=== PATIENT | female | born 1990 | race Caucasian/White ===

== ENCOUNTER 2022-11-11 09:17 | Outpatient (CLI) | payer OTHER, SELFPAY ==
--- NOTE | 2022-11-11 09:15 | CRLHL7_ITS ---
For Patients: As a result of the Century Cures Act, medical imaging exams and procedure reports are released immediately into your electronic medical record. You may view this report before your referring provider. If you have questions, please contact your health care provider. INDICATION: First trimester scan, establish dates. COMPARISON: None. TECHNIQUE: Real-time pizano-scale imaging of the pelvis was performed. FINDINGS: Intrauterine gestational sac is present with diffuse low level internal echoes with a mean sac diameter of 3.3 cm, 8 weeks 3 days. Left fundal subchorionic hemorrhage measuring 2.1 x 0.8 x 0.7 cm. pole is present measuring 2.5 millimeters, 5 weeks 6 days. No heart tones. No ectopic . Ovaries normal. Corpus luteal cyst right ovary. IMPRESSION: Nonviable gestation. Dictated by Chris Dennis MD @ 11/11/2022 11:19:48 AM (Electronically Signed)
== END 2022-11-11 09:18 | disposition home or self-care (01) ==
LOC: US 09:18
PROVIDERS: PCP Family Medicine; Visit Provider Physician Assistant
DX: Z34.91 Encounter for supervision of normal pregnancy, unspecified, first trimester (principal); O20.9 Hemorrhage in early pregnancy, unspecified
CPT/HCPCS: 76817; 84702; 86850; 86900; 86901

== ENCOUNTER 2022-11-25 07:14 | Outpatient (CLI) | payer OTHER, SELFPAY ==
--- NOTE | 2022-11-25 08:15 | CRLHL7_ITS ---
For Patients: As a result of the Century Cures Act, medical imaging exams and procedure reports are released immediately into your electronic medical record. You may view this report before your referring provider. If you have questions, please contact your health care provider. INDICATION: Follow up viability COMPARISON: 11/11/2022 TECHNIQUE: Real-time pizano-scale imaging of the pelvis was performed. FINDINGS: Intrauterine gestational sac is present, 3.2 cm, 8 weeks 2 days. Layering echoes noted compatible with blood products. No pole. Subchorionic hemorrhage measuring 4.7 x 0.6 x 1.5 cm. Ovaries are normal. No ectopic. IMPRESSION: Nonviable gestation. pole no longer present. Residual gestational sac in the endometrial canal containing blood products. Dictated by Chrsi Dennis MD @ 11/25/2022 9:37:49 AM (Electronically Signed)
== END 2022-11-25 07:15 | disposition home or self-care (01) ==
PROVIDERS: Visit Provider Physician Assistant
DX: Z34.91 Encounter for supervision of normal pregnancy, unspecified, first trimester (principal); O03.9 Complete or unspecified spontaneous abortion without complication
CPT/HCPCS: 76817

== ENCOUNTER 2023-03-11 10:50 | Outpatient (CLI) | payer OTHER, SELFPAY | END 2023-03-11 10:51 | disposition home or self-care (01) | LOC: NFLDREF 10:51 | PROVIDERS: Visit Provider Physician Assistant | DX: N93.8 Other specified abnormal uterine and vaginal bleeding (principal) | CPT/HCPCS: 84443 ==

== ENCOUNTER 2023-03-17 07:07 | Outpatient (CLI) | payer OTHER, SELFPAY ==
--- NOTE | 2023-03-17 07:15 | CRLHL7_ITS ---
For Patients: As a result of the Century Cures Act, medical imaging exams and procedure reports are released immediately into your electronic medical record. You may view this report before your referring provider. If you have questions, please contact your health care provider. INDICATION: IRREGULAR BLEEDING COMPARISON: 11/25/2022 TECHNIQUE: 2D pizano scale and color Doppler images were acquired of the pelvis using a transabdominal and transvaginal approach. FINDINGS: Sonographic images demonstrate a normal size and smooth outer contour of the uterus. Uterus measures 9.3 cm in length by 4.7 cm in AP diameter by 6.8 cm in transverse dimension. The myometrium has a normal uniform echotexture. The endometrial lining appears mildly heterogeneous and measures 8 mm in composite thickness. The right ovary measures 4.2 x 2.8 x 3.0 cm in size and the left ovary measures 4.5 x 2.1 x 2.3 cm. The ovaries demonstrate normal arterial and venous blood flow on color Doppler analysis. There are no suspicious fluid collections within the cul-de-sac. IMPRESSION: Mildly heterogeneous endometrium measuring 8 millimeters. No uterine fibroids. Dictated by Chris Dennis MD @ 03/17/2023 8:44:11 AM (Electronically Signed)
== END 2023-03-17 07:08 | disposition home or self-care (01) ==
PROVIDERS: Visit Provider Physician Assistant
DX: N93.8 Other specified abnormal uterine and vaginal bleeding (principal); R93.89 Abnormal findings on diagnostic imaging of other specified body structures
CPT/HCPCS: 76830; 76856

== ENCOUNTER 2023-09-30 07:47 | Outpatient (CLI) | payer OTHER, SELFPAY | END 2023-09-30 07:48 | disposition home or self-care (01) | LOC: NFLDREF 10-01 07:06 | PROVIDERS: PCP Family Medicine; Referring Provider Family Medicine; Visit Provider Family Medicine | DX: Z13.1 Encounter for screening for diabetes mellitus (principal); Z13.6 Encounter for screening for cardiovascular disorders | CPT/HCPCS: 80061; 82947 ==

== ENCOUNTER 2023-12-18 07:24 | Outpatient (CLI) | payer OTHER, SELFPAY ==
--- OUTSIDE RECORDS SUMMARY | 2023-12-23 07:06 | XMS_ITS | Referral Summary ---
Author Organization [facility] Address [address] [place] [address] Care Team Providers Care Imaging Center Manager Name Role Phone Unavailable Primary Care Provider Unavailabl e Source Comments Patient records contain information from all sites at [facility]. For routine questions regarding patient records, call [phone] during business hours, M-F 8:00 AM - 5:00 PM Central Time. Record requests for emergency care only can be directed to [phone] at any time.[facility] Immunizations Name Administration Dates Next Due SARS-COV-2 (COVID-19) - MODE RNA (12 YEARS AND OLDER) [id number] 04/16/2023 influenza vaccine quad (FLUZ ONE/FLUARIX) (6 months and older)(PF) 04/16/2023 Social History Tobacco Use Types Packs/Day Years Used Date Smoking Tobacco: Never Assessed Nutrition Answer Date Recorded Nutrition: EVOO Fat Source Unknown 04/02 Nutrition: Servings of Fruits/Vegetables per Day Not on file 04/02/2023 Dental Answer Date Recorded Dental: Regular Dentist Unknown 04/02/20 23 Sex and Gender Information Value Date Recorded Sex Assigned at Not on file Gender Identity Not on file Sexual Orientation Not on file Plan of Treatment Not on file
--- OUTSIDE RECORDS SUMMARY | 2023-12-23 07:06 | XMS_ITS ---
Author Organization [facility] Address [address] [place] [address] Care Team Providers Care Help Desk Technician Name Role Phone Unavailable Unavailable Unavailable Surgery Details Not on file Complications Check Surgery Details section. Procedure Estimated Blood Loss Check Surgery Details section. Procedure Findings Check Surgery Details section. Procedure Specimens Taken Check Surgery Details section.
--- OUTSIDE RECORDS SUMMARY | 2023-12-23 07:06 | XMS_ITS | Clinical Summary ---
Author Organization [facility] Address [place], [place] [address] Care Team Providers Care Fiberglass Auto Body Repairer Name Role Phone Pcp, No Primary Care Provider Unavailabl e Allergies Active Allergy Reactions Criticality Noted Date Comments Tree Nut Tongue Swelling 10/01/2011 Medications Medication Sig Dispensed Refills Start Date End Date Status oxyCODONE-acetaminop hen, 5-325 mg, (PERCOCET) per tablet Take 1-2 tablets by mouth every 4 hours if needed for Pain. Max acetaminophen dose: 4000mg in 24 hrs. 30 tablet 0 10/02/2011 Active ondansetron (ZOFRAN ODT) [address] 1 tablet on the tongue every 8 hours if needed for Nausea/Vomiting. 8 tablet 0 10/02/2011 Active levonorgestrel-ethin yl estradiol (QUASENSE) 0.15-30 mg-mcg tabletIndications:Dy smenorrhea Take 1 tablet by mouth once daily. 1 Package 3 10/01/2012 Active scopolamine 1.5mg (TRANSDERM SCOP) 1.5 mg patch Apply 1 Patch on dry, clean, hairless skin every 72 hours. 12 Patch 0 11/02/2012 Active Active Problems No known active problems Immunizations Name Administration Dates Next Due DTP 08/17/2002, 6,09/21/1991,1991,02/10/1991,1990 Hepatitis B (Peds) 12/27/1999,07/25/1999, 000 Hib Conjugate, Unspecified 12/01/1991,02/10/1991 ,1990 Influenza A (H1N1), Inactiva romana (Age >=3 Years) 04/28/2009 Influenza, IIV3 (Age >=3 years) 04/28/2009,03/18,02/25/2006 MMR 07/17/2001,11/29/1991 MMR, Unspecified 02/20/2001 Meningococcal, Unspecified 02/19/2006 Oral Polio Vaccine 01/09/1996, 3,02/10/1991,1990 Rabies Vaccine 11/23/2003 Td, Preservative Free (age > = 7 Years) 06/14/2004 Tdap 12/20/2010 Family History Medical History Relation Name Comments Good Health Father Cancer-breast Maternal Aunt in her 50s Good Health Mother Cancer-breast Paternal Aunt in her 50s Good Health Sister Anesthesia Problem No Family History Blood Disease No Family History Unknown No Family History kidney or urinary tract problems Relation Name Status Comments Father Maternal Aunt Mother Paternal Aunt Sister Social History Tobacco Use Types Packs/Day Years Used Date Smoking Tobacco: Never Smokeless Tobacco: Never Alcohol Use Standard Drinks/Week Comments Yes 0 (1 standard drink = 0.6 oz pur e alcohol) occ Sex and Gender Information Value Date Recorded Sex Assigned at Not on file Gender Identity Not on file Sexual Orientation Not on file Obstetrics History Last Filed Vital Signs Vital Sign Reading Time Taken Comments Blood Pressure 102/59 10/02/2011 10:53 AM CDT Pulse 68 10/02/2011 10:53 AM CDT Temperature 36.1 ??C (96.9 ??F) 10/02/2011 9:26 AM CD T Respiratory Rate 14 10/02/2011 10:53 AM CDT Oxygen Saturation 100% 10/02/2011 10:53 AM CDT Inhaled Oxygen Concentration - - Weight 59.9 kg (132 lb) 10/01/2011 1:21 PM CDT Height 166.4 cm (5' 5.5) 10/01/2011 1:21 PM CDT Body Mass Index 21.63 10/01/2011 1:21 PM CDT Plan of Treatment Health Maintenance Due Date Last Done Comments Depression screening for age 12+ 2002 BMI (ht and wt on same day) for age 18+ 2008 Hepatitis C screening for age 18-79 2008 Pap test for age 21-65 09/30/2014 10/01/2011 Tetanus booster 12/20/2020 12/20/2010, 06/14/2004 COVID-19 vaccine series ( season) 2023 Influenza for age 9-49 01/18/2024 9, 04/28/2009, 03/18/2007, Additional history exists HIV for age 15-65 Completed 07/31/2010 Tdap Completed 12/20/2010 Pneumococcal series for age 6-64 Aged Out No longer eligible based on patient's age to complete this topic Procedures Procedure Name Priority Date/Time Associated Diagnosis Comments WOOL PULLER THIN PREP PAP SCREEN IMAGED Routine 10/01/2011 4:22 PM CDT Screening for malignant neoplasm of the cervix ANTI HIV 1/2 Routine 07/31/2010 2:46 PM CDT Screening examination for venereal disease from Last 3 Months or Most Recently Relevant to Health Maintenance Results * WOOL PULLER THIN PREP PAP SCREEN IMAGED (10/01/2011 4:22 PM CDT) CYTOLOGY CYTOPATHOLOGY REPORT [facility] Status: Final Status ?[id number] CLINICAL INFORMATION Last Date of LMP ? :09/18/11 Last Pap Date ?:never Last Pap Result ?:First Pap/Unknown ABN [place]/Bx Past 5 YRS :None Hormone Usage ?:BCP/OCP/Patch/R ing Menstrual Status ? :Irregular Periods [place]/Bx done today ? :No Additional Information :pATIENT GETS PERIOD EVERY THREE MONTHS, ON ? qUASENSE CONTROL pills HPV Request ?:HPV if ASCUS SPECIMEN SOURCE ?:Cervical/vagina l ThinPrep Vial, screening SPECIMEN ADEQUACY ?:Satisfactory for evaluation Endocervical component ? present. INTERPRETATION/RES ULT Negative for intraepithelial lesion or malignancy (NIL) Cytology 1st Screener ??:sag Signed by ?:sag This specimen was screened by the FDA approved ThinPrep Imaging System and manually reviewed. NOTE: ??The Pap test is a screening technique, not a diagnostic procedure. ??It is used ??primarily to screen for squamous cancers and precursor lesions. ??Published studies have shown that it is subject to both false negative and false positive results. ??The pap test should not be used as the sole means to diagnose or exclude pre-malignant and malignant lesions. COLLECTED:10/01/11 ? ACCESSIONED: ??10/02/11 ?? SIGNED: ??10/07/11 [facility] PAP [place] CODE NIL [facility] Tissue specimen (specimen) (Cervical/Vagina l) 10/01/2011 4:22 PM CDT 10/01/2011 4:19 PM CDT [facility]/CYTOLOGY [facility] INTERNAL ZIP [address] [place] [address] * HIV (07/31/2010 2:46 PM CDT) ANTI HIV 1/2 Non-reacti ve [facility] Blood specimen (specimen) BLOOD SPECIMEN / Unknown 07/31/2010 2:46 PM CDT 07/31/2010 2:38 PM CDT Claudia Stanton MD SEND OUTS [facility] INTERNAL ZIP [phone] [address] from Last 3 Months or Most Recently Relevant to Health Maintenance Insurance Payer Benefit Plan / Group Subscriber ID Effective Dates Phone Address Type BLUE CROSS BL[place]OSS [place] FED EMP [id number] 2010-Presen t [address] [address] [place] [address] COSMETIC PROCEDURES COSMETIC PROCEDURE HB ONLY 10/02/2011-Prese nt [address] ATTN: [place] [address] Care Teams Fiberglass Auto Body Repairer Relationship Specialty Start Date End Date Pcp, No . PCP - General 01/28/12
--- OUTSIDE RECORDS SUMMARY | 2023-12-23 07:06 | XMS_ITS | Clinical Summary ---
Author Organization [facility] Address [address] [place] [address] Care Team Providers Care Utility Operator Yarn Name Role Phone Unavailable Primary Care Provider Unavailabl e Source Comments Patient records contain information from all sites at [facility]. For routine questions regarding patient records, call [phone] during business hours, M-F 8:00 AM - 5:00 PM Central Time. Record requests for emergency care only can be directed to [phone] at any time.[facility] Immunizations Name Administration Dates Next Due SARS-COV-2 (COVID-19) - MODE RNA (12 YEARS AND OLDER) [id number] 04/16/2023 influenza vaccine quad (FLUZ ONE/FLUARIX) (6 [...] Orientation Not on file Plan of Treatment Health Maintenance Due Date Last Done Comments Cervical Cancer Screening 1990 HIV Screening 1990 Hepatitis C Screening 1990 DTaP,Tdap,and Td Vaccines (1 - Tdap) 2009 Hepatitis B Vaccines (1 of 3 - 19+ 3-dose series) 2009 Depression Screening (Annual PHQ-2) 05/19/2023 Influenza Vaccine (#1) 2024 04/16/2023 COVID-19 Vaccine Completed 04/16/2023 HPV Vaccines Aged Out No longer eligi ble based on patient's age to complete this topic Pneumococcal vaccine (0-64 years) Aged Out No longer eligible based on patient's age to complete this topic
== END 2023-12-18 07:25 | disposition home or self-care (01) ==
LOC: NFLDREF 12-23 07:04
PROVIDERS: PCP Family Medicine; Referring Provider Family Medicine; Visit Provider Physician Assistant
DX: N97.9 Female infertility, unspecified (principal)
CPT/HCPCS: 84144

== ENCOUNTER 2023-12-30 07:30 | Outpatient (RCR) | payer OTHER, SELFPAY | END 2024-01-28 15:53 | disposition home or self-care (01) | PROVIDERS: PCP Family Medicine; Visit Provider Family Medicine | DX: M53.3 Sacrococcygeal disorders, not elsewhere classified (principal); Z51.89 Encounter for other specified aftercare | CPT/HCPCS: 97110; 97140; 97161 ==

== ENCOUNTER 2024-01-20 07:17 | Outpatient (CLI) | payer OTHER, SELFPAY ==
--- NOTE | 2024-01-20 07:15 | CRLHL7_ITS ---
For Patients: As a result of the Cures Act, medical imaging exams and procedure reports are released immediately into your electronic medical record. You may view this report before your referring provider. If you have questions, please contact your health care provider. INDICATION: First trimester scan, establish dates. COMPARISON: None. TECHNIQUE: Real-time pizano-scale imaging of the pelvis was performed. FINDINGS: Sonographic imaging demonstrates a single living intrauterine gestation. The embryo demonstrates a regular cardiac rate measuring 154 beats per minute. The embryo`s crown-rump length measurement of 1.3 cm corresponds to a gestational age of 7 weeks 4 days with a sonographic due date of 09/03/2024. There is a normal-appearing yolk sac. There are no gross abnormalities noted within the embryo at this early state of development. The gestational sac has a normal appearance. There is a 3.4 x 1.0 x 1.7 cm perigestational hemorrhage. The amount of fluid within the sac appears appropriate for gestational age. The cervix is closed. The myometrium appears normal. The ovaries are of normal size. There are no suspicious fluid collections noted in the cul-de-sac. IMPRESSION: Single living intrauterine with sonographic gestational age 7 weeks 4 days and sonographic due date of 09/03/2024. Subchorionic hemorrhage measuring 3.4 x 1.0 x 1.7 cm. Dictated by Chris Dennis MD @ 01/20/2024 8:13:22 AM (Electronically Signed)
--- OUTSIDE RECORDS SUMMARY | 2024-01-20 07:19 | XMS_ITS | Clinical Summary ---
Author Organization [facility] Address [address] [place] [address] Care Team Providers Care Industrial Chemist Name Role Phone Unavailable Primary Care Provider Unavailabl e Source Comments Patient records contain information from all sites at [facility]. For routine questions regarding patient records, call [phone] during business hours, M-F 8:00 AM - 5:00 PM Central Time. Record requests for emergency care only can be directed to [phone] at any time.[facility] Immunizations Name Administration Dates Next Due SARS-COV-2 (COVID-19) - MODE RNA (12 YEARS AND OLDER) [id number] 04/16/2023 influenza vaccine quad (FLUZ ONE/FLUARIX) (6 [...]
--- OUTSIDE RECORDS SUMMARY | 2024-01-20 07:19 | XMS_ITS | Referral Summary ---
Author Organization [facility] Address [address] [place] [address] Care Team Providers Care Machine Sprayer Name Role Phone Unavailable Primary Care Provider Unavailabl e Source Comments Patient records contain information from all sites at [facility]. For routine questions regarding patient records, call [phone] during business hours, M-F 8:00 AM - 5:00 PM Central Time. Record requests for emergency care only can be directed to [phone] at any time.[facility] Immunizations Name Administration Dates Next Due SARS-COV-2 (COVID-19) - MODE RNA (12 YEARS AND OLDER) [id number] 04/16/2023 influenza vaccine quad (FLUZ ONE/FLUARIX) (6 [...]
--- OUTSIDE RECORDS SUMMARY | 2024-01-20 07:19 | XMS_ITS ---
Author Organization [facility] Address [address] [place] [address] Care Team Providers Care Com Writer Name Role Phone Unavailable Unavailable Unavailable Surgery Details Not on file Complications Check Surgery Details section. Procedure Estimated Blood Loss Check Surgery Details section. Procedure Findings Check Surgery Details section. Procedure Specimens Taken Check Surgery Details section.
--- OUTSIDE RECORDS SUMMARY | 2024-01-20 07:19 | XMS_ITS | Clinical Summary ---
Author Organization [facility] Address [address] [address] Care Team Providers Care Instructor Tap Dancing Name Role Phone Pcp, No Primary Care [...] 12/20/2010, 06/14/2004 COVID-19 vaccine series ( season) 2024 Influenza for age 9-49 01/18/2024 9, 04/28/2009, 03/18/2007, Additional history exists HIV for age 15-65 Completed 07/31/2010 Tdap Completed 12/20/2010 Pneumococcal series for age 6-64 Aged Out No longer eligible based on patient's age to complete this topic Procedures Procedure Name Priority Date/Time Associated Diagnosis Comments FLOAT TENDER THIN PREP PAP SCREEN IMAGED Routine 10/01/2011 4:22 PM CDT Screening for malignant neoplasm of the cervix ANTI HIV 1/2 Routine 07/31/2010 2:46 PM CDT Screening examination for venereal disease from Last 3 Months or Most Recently Relevant to Health Maintenance Results * FLOAT TENDER THIN PREP PAP SCREEN IMAGED (10/01/2011 4:22 PM CDT) CYTOLOGY CYTOPATHOLOGY REPORT [facility] Status: Final Status ?[id number] CLINICAL INFORMATION Last Date of LMP ? :09/18/11 Last Pap Date ?:never Last Pap Result ?:First Pap/Unknown ABN [place]/Bx Past 5 YRS :None Hormone Usage ?:BCP/OCP/Patch/R ing Menstrual Status ? :Irregular Periods [place]/Bx done today ? :No Additional Information :pATIENT [...] COLLECTED:10/01/11 ? ACCESSIONED: ??10/02/11 ?? SIGNED: ??10/07/11 [facility] PAP [place] CODE NIL [facility] Tissue specimen (specimen) (Cervical/Vagina l) 10/01/2011 4:22 PM CDT 10/01/2011 4:19 PM CDT [facility]/CYTOLOGY [facility] INTERNAL ZIP [address] [place] [address] * HIV (07/31/2010 2:46 PM CDT) ANTI HIV 1/2 Non-reacti ve [facility] Blood specimen (specimen) BLOOD SPECIMEN / Unknown 07/31/2010 2:46 PM CDT 07/31/2010 2:38 PM CDT Claudia Stanton MD SEND OUTS [facility] INTERNAL ZIP [phone] [address] from Last 3 Months or Most Recently Relevant to Health Maintenance Insurance Payer Benefit Plan / Group Subscriber ID Effective Dates Phone Address Type BLUE CROSS [place] FED EMP [id number] 2010-Presen t [address] [address] [place] [address] COSMETIC PROCEDURES COSMETIC PROCEDURE HB ONLY 10/02/2011-Prese nt [address] ATTN: [place] [address] Care Teams Instructor Tap Dancing Relationship Specialty Start Date End Date Pcp, No . PCP - General 01/28/12
== END 2024-01-20 07:18 | disposition home or self-care (01) ==
LOC: US 07:18
PROVIDERS: PCP Family Medicine; Visit Provider Physician Assistant
DX: Z34.91 Encounter for supervision of normal pregnancy, unspecified, first trimester (principal); O20.9 Hemorrhage in early pregnancy, unspecified; Z3A.01 Less than 8 weeks gestation of pregnancy
CPT/HCPCS: 76817

== ENCOUNTER 2024-01-27 07:17 | Outpatient (CLI) | payer OTHER, SELFPAY ==
--- NOTE | 2024-01-27 07:15 | CRLHL7_ITS ---
For Patients: As a result of the Century Cures Act, medical imaging exams and procedure reports are released immediately into your electronic medical record. You may view this report before your referring provider. If you have questions, please contact your health care provider. INDICATION: Follow-up viability COMPARISON: 01/20/2024 TECHNIQUE: Real-time pizano-scale imaging of the pelvis was performed. FINDINGS: Sonographic imaging demonstrates a single living intrauterine gestation. The embryo demonstrates a regular cardiac rate measuring 178 beats per minute. The embryo`s crown-rump length measurement of 2.1 cm corresponds to a gestational age of 8 weeks 5 days with a sonographic due date of 09/02/2024. There is a normal-appearing yolk sac. There are no gross abnormalities noted within the embryo at this early state of development. The gestational sac has a normal appearance. There is no evidence of a perigestational hemorrhage. The amount of fluid within the sac appears appropriate for gestational age. The ovaries are not visualized. IMPRESSION: Single living intrauterine with sonographic gestational age 8 weeks 5 days and a sonographic due date of 09/02/2024. Dictated by Chris Dennis MD @ 01/27/2024 8:44:04 AM (Electronically Signed)
--- OUTSIDE RECORDS SUMMARY | 2024-01-27 07:21 | XMS_ITS | Referral Summary ---
Author Organization [facility] Address [address] [place] [address] Care Team Providers Care Head Filter Tank Tender Helper Name Role Phone Unavailable Primary Care Provider Unavailabl e Source Comments Patient records contain information from all sites at [facility]. For routine questions regarding patient records, call [phone] during business hours, M-F 8:00 AM - 5:00 PM Central Time. Record requests for emergency care only can be directed to [phone] at any time.[facility] Immunizations Name Administration Dates Next Due SARS-COV-2 (COVID-19) - MODE RNA (12 YEARS AND OLDER) [id number] 04/16/2023 influenza vaccine quad (FLUZ ONE/FLUARIX) (6 [...]
--- OUTSIDE RECORDS SUMMARY | 2024-01-27 07:21 | XMS_ITS ---
Author Organization [facility] Address [address] [place] [address] Care Team Providers Care Outsole Scheduler Name Role Phone Unavailable Unavailable Unavailable Surgery Details Not on file Complications Check Surgery Details section. Procedure Estimated Blood Loss Check Surgery Details section. Procedure Findings Check Surgery Details section. Procedure Specimens Taken Check Surgery Details section.
--- OUTSIDE RECORDS SUMMARY | 2024-01-27 07:21 | XMS_ITS | Clinical Summary ---
Author Organization [facility] Address [place], [place] [address] Care Team Providers Care Choker Setter Name Role Phone Pcp, No Primary Care [...] Procedure Name Priority Date/Time Associated Diagnosis Comments VULCANIZED FIBER UNIT OPERATOR THIN PREP PAP SCREEN IMAGED Routine 10/01/2011 4:22 PM CDT Screening for malignant neoplasm of the cervix ANTI HIV 1/2 Routine 07/31/2010 2:46 PM CDT Screening examination for venereal disease from Last 3 Months or Most Recently Relevant to Health Maintenance Results * VULCANIZED FIBER UNIT OPERATOR THIN PREP PAP SCREEN IMAGED (10/01/2011 4:22 PM CDT) CYTOLOGY CYTOPATHOLOGY REPORT [facility] Status: Final Status ?[id number] CLINICAL INFORMATION Last Date of LMP ? :09/18/11 Last Pap Date ?:never Last Pap Result ?:First Pap/Unknown ABN [place]/Bx Past 5 YRS :None Hormone Usage ?:BCP/OCP/Patch/R ing Menstrual Status ? :Irregular Periods [place]/Bx done today ? :No Additional Information :pATIENT [...] COLLECTED:10/01/11 ? ACCESSIONED: ??10/02/11 ?? SIGNED: ??10/07/11 [facility] PAP [place] CODE NIL [facility] Tissue specimen (specimen) (Cervical/Vagina l) 10/01/2011 4:22 PM CDT 10/01/2011 4:19 PM CDT [facility]/CYTOLOGY [facility] INTERNAL ZIP [address] [place] [address] * HIV (07/31/2010 2:46 PM CDT) ANTI HIV 1/2 Non-reacti ve [facility] Blood specimen (specimen) BLOOD SPECIMEN / Unknown 07/31/2010 2:46 PM CDT 07/31/2010 2:38 PM CDT Claudia Stanton MD SEND OUTS [facility] INTERNAL ZIP [phone] [address] from Last 3 Months or Most Recently Relevant to Health Maintenance Insurance Payer Benefit Plan / Group Subscriber ID Effective Dates Phone Address Type BLUE CROSS [place] EMP [id number] 2010-Presen t [address] [address] [place] [address] COSMETIC PROCEDURES COSMETIC PROCEDURE HB ONLY 10/02/2011-Prese nt [address] ATTN: [place] [address] Care Teams Choker Setter Relationship Specialty Start Date End Date Pcp, No . PCP - General 01/28/12
--- OUTSIDE RECORDS SUMMARY | 2024-01-27 07:21 | XMS_ITS | Clinical Summary ---
Author Organization [facility] Address [address] [place] [address] Care Team Providers Care Continuous Process Coffee Roaster Name Role Phone Unavailable Primary Care Provider Unavailabl e Source Comments Patient records contain information from all sites at [facility]. For routine questions regarding patient records, call [phone] during business hours, M-F 8:00 AM - 5:00 PM Central Time. Record requests for emergency care only can be directed to [phone] at any time.[facility] Immunizations Name Administration Dates Next Due SARS-COV-2 (COVID-19) - MODE RNA (12 YEARS AND OLDER) [id number] 04/16/2023 influenza vaccine quad (FLUZ ONE/FLUARIX) (6 [...]
== END 2024-01-27 07:18 | disposition home or self-care (01) ==
PROVIDERS: PCP Family Medicine; Visit Provider Physician Assistant
DX: Z34.91 Encounter for supervision of normal pregnancy, unspecified, first trimester (principal); Z3A.08 8 weeks gestation of pregnancy
CPT/HCPCS: 76816; 86592; 86703; 86704; 86706; 86762; 86787; 86803; 86850; 86900; 86901; 87086; 87340

== ENCOUNTER 2024-02-10 07:54 | Outpatient (CLI) | payer OTHER, SELFPAY ==
--- OUTSIDE RECORDS SUMMARY | 2024-02-10 07:56 | XMS_ITS | Clinical Summary ---
Author Organization [employer] [facility] Address [place], [place] [address] Care Team Providers Care Quality Assurance Monitor Chassis Name Role Phone Pcp, No Primary Care [...] Procedure Name Priority Date/Time Associated Diagnosis Comments MARKETING AUTOMATION SPECIALIST THIN PREP PAP SCREEN IMAGED Routine 10/01/2011 4:22 PM CDT Screening for malignant neoplasm of the cervix ANTI HIV 1/2 Routine 07/31/2010 2:46 PM CDT Screening examination for venereal disease from Last 3 Months or Most Recently Relevant to Health Maintenance Results * MARKETING AUTOMATION SPECIALIST THIN PREP PAP SCREEN IMAGED (10/01/2011 4:22 PM CDT) CYTOLOGY CYTOPATHOLOGY REPORT [facility] Status: Final Status ?[id number] CLINICAL INFORMATION Last Date of LMP ? :09/18/11 Last Pap Date ?:never Last Pap Result ?:First Pap/Unknown ABN [place]/Bx Past 5 YRS :None Hormone Usage ?:BCP/OCP/Patch/R ing Menstrual Status ? :Irregular Periods [place]/Bx done today ? :No Additional Information :pATIENT [...] COLLECTED:10/01/11 ? ACCESSIONED: ??10/02/11 ?? SIGNED: ??10/07/11 [facility] PAP BETHESDA CODE NIL [facility] Tissue specimen (specimen) (Cervical/Vagina l) 10/01/2011 4:22 PM CDT 10/01/2011 4:19 PM CDT [facility] GUAJARDO PATHOLOGY/CYTOLOGY [facility] [place]NAL ZIP [phone] [place] [address] * HIV (07/31/2010 2:46 PM CDT) ANTI HIV 1/2 Non-reacti ve [facility] Blood specimen (specimen) BLOOD SPECIMEN / Unknown 07/31/2010 2:46 PM CDT 07/31/2010 2:38 PM CDT Claudia Stanton MD SEND OUTS [facility] INTERNAL ZIP [address] [address] from Last 3 Months or Most Recently Relevant to Health Maintenance Insurance Payer Benefit Plan / Group Subscriber ID Effective Dates Phone Address Type BLUE CROSS [place] EMP [id number] 2010-Presen t [address] [address] [place] [address] COSMETIC PROCEDURES COSMETIC PROCEDURE HB ONLY 10/02/2011-Prese nt [address] ATTN: [place] [address] Care Teams Quality Assurance Monitor Chassis Relationship Specialty Start Date End Date Pcp, No . PCP - General 01/28/12
--- OUTSIDE RECORDS SUMMARY | 2024-02-10 07:56 | XMS_ITS ---
Author Organization [facility] Address [address] [place] [address] Care Team Providers Care Chemical Preparer Name Role Phone Unavailable Unavailable Unavailable Surgery Details Not on file Complications Check Surgery Details section. Procedure Estimated Blood Loss Check Surgery Details section. Procedure Findings Check Surgery Details section. Procedure Specimens Taken Check Surgery Details section.
--- OUTSIDE RECORDS SUMMARY | 2024-02-10 07:56 | XMS_ITS | Clinical Summary ---
Author Organization [facility] Address [address] [place] [address] Care Team Providers Care Professor Of German Name Role Phone Unavailable Primary Care Provider Unavailabl e Source Comments Patient records contain information from all sites at [facility]. For routine questions regarding patient records, call [phone] during business hours, M-F 8:00 AM - 5:00 PM Central Time. Record requests for emergency care only can be directed to [phone] at any time.[facility] Immunizations Name Administration Dates Next Due SARS-COV-2 (COVID-19) - MODE RNA (12 YEARS AND OLDER) [id number] 04/16/2023 influenza vaccine quad (FLUZ ONE/FLUARIX) (6 [...] series) 2009 Depression Screening (Annual PHQ-2) 05/19/2023 COVID-19 Vaccine (2 - 2023-2 5 season) 2024 04/16/2023 Influenza Vaccine (#1) 2024 04/16/2023 HPV Vaccines Aged Out No longer eligi ble based on patient's age to complete this topic Pneumococcal vaccine (0-64 years) Aged Out No longer eligible based on patient's age to complete this topic
--- OUTSIDE RECORDS SUMMARY | 2024-02-10 07:56 | XMS_ITS | Referral Summary ---
Author Organization [facility] Address [address] [place] [address] Care Team Providers Care Fourchette Sewer Name Role Phone Unavailable Primary Care Provider Unavailabl e Source Comments Patient records contain information from all sites at [facility]. For routine questions regarding patient records, call [phone] during business hours, M-F 8:00 AM - 5:00 PM Central Time. Record requests for emergency care only can be directed to [phone] at any time.[facility] Immunizations Name Administration Dates Next Due SARS-COV-2 (COVID-19) - MODE RNA (12 YEARS AND OLDER) [id number] 04/16/2023 influenza vaccine quad (FLUZ ONE/FLUARIX) (6 [...]
--- NOTE | 2024-02-10 08:00 | CRLHL7_ITS ---
For Patients: As a result of the Century Cures Act, medical imaging exams and procedure reports are released immediately into your electronic medical record. You may view this report before your referring provider. If you have questions, please contact your health care provider. INDICATION: Follow-up viability COMPARISON: 01/27/2024 TECHNIQUE: Real-time pizano-scale imaging of the pelvis was performed. FINDINGS: Sonographic imaging demonstrates a single living intrauterine gestation. The embryo demonstrates a regular cardiac rate measuring 176 beats per minute. The embryo`s crown-rump length measurement of 3.9 cm corresponds to a gestational age of 10 weeks 5 days with a sonographic due date of 09/02/2024. There is a normal-appearing yolk sac. There are no gross abnormalities noted within the embryo at this early state of development. The gestational sac has a normal appearance. There is no evidence of a perigestational hemorrhage. The amount of fluid within the sac appears appropriate for gestational age. The cervix is closed. The myometrium appears normal. The ovaries are of normal size. Corpus luteal cyst left ovary. There are no suspicious fluid collections noted in the cul-de-sac. IMPRESSION: Normal first trimester OB ultrasound exam. Gestational age calculated at 10 weeks 5 days with a sonographic due date of 09/02/2024. Dictated by Chris Dennis MD @ 02/10/2024 1:37:02 PM (Electronically Signed)
== END 2024-02-10 07:55 | disposition home or self-care (01) ==
PROVIDERS: PCP Family Medicine; Visit Provider Physician Assistant
DX: Z34.91 Encounter for supervision of normal pregnancy, unspecified, first trimester (principal); Z3A.10 10 weeks gestation of pregnancy
CPT/HCPCS: 76816

== ENCOUNTER 2024-04-20 08:14 | Outpatient (CLI) | payer OTHER, SELFPAY ==
--- NOTE | 2024-04-20 08:15 | CRLHL7_ITS ---
For Patients: As a result of the Century Cures Act, medical imaging exams and procedure reports are released immediately into your electronic medical record. You may view this report before your referring provider. If you have questions, please contact your health care provider. INDICATION: Evaluate anatomy. COMPARISON: 02/10/2024 TECHNIQUE: Real time pizano scale imaging of the fetus was performed as well as color Doppler analysis of the umbilical vessels. FINDINGS: Sonographic imaging demonstrates a single living intrauterine gestation. Fetus demonstrates a regular cardiac rate of 163 beats per minute. Fetus has a vertex position. The placenta lies posteriorly. With transvaginal imaging, the placental edge is located 2.2 cm from the internal cervical os. Amniotic fluid volume appears normal. Single deepest vertical pocket: 4.3 cm. The cervix is closed and measures 3.7 cm in length. The composite ultrasound gestational age is calculated at 20 weeks 3 days with an estimated sonographic due date of 09/04/2024. The estimated weight is 356 grams which lies at the 40th %. The following biometric measurements were obtained: Biparietal diameter: 4.6 cm/20 weeks 0 days 27th% Head circumference: 17.4 cm/19 weeks 6 days 15th% Abdominal circumference: 15.5 cm/20 weeks 4 days 46th% Femur length: 3.3 cm/20 weeks 3 days 38th% The HC/AC ratio measures: 1.12 range (1.07-1.25) On anatomic survey, there is a normal appearance of the cerebral ventricles, cavum septi pellucidi, cisterna magna and cerebellum. The nose, lips, and facial profile appear normal. The cervical, thoracic and lumbar spine are well visualized and appear normal. There is a normal four-chamber heart view and the left and right ventricular outflow tracts appear normal. The diaphragm and stomach appear normal. The kidneys and bladder also appear normal. There is a normal three-vessel cord and cord insertion site. The four extremities appear normal. IMPRESSION: Concordance of clinical and sonographic dating. No intrinsic abnormalities noted on anatomic survey. Posterior placental edge 2.2 cm from the internal cervical os. Dictated by Chris Dennis MD @ 04/20/2024 12:00:27 PM (Electronically Signed)
--- OUTSIDE RECORDS SUMMARY | 2024-04-20 08:18 | XMS_ITS | Clinical Summary ---
Author Organization [facility] Address [address] [place] [address] Care Team Providers Care Business Applications Developer Name Role Phone Unavailable Primary Care Provider Unavailabl e Source Comments Patient records contain information from all sites at [facility]. For routine questions regarding patient records, call [phone] during business hours, M-F 8:00 AM - 5:00 PM Central Time. Record requests for emergency care only can be directed to [phone] at any time.[facility] Immunizations Name Administration Dates Next Due SARS-COV-2 (COVID-19) - MODE RNA (12 YEARS AND OLDER) Fall Seasonal 04/16/2023 influenza vaccine quad (FLUZ ONE/FLUARIX) (6 months and older)(PF) 04/16/2023 Social History Tobacco Use Types Packs/Day Years Used Date Smoking Tobacco: Never Assessed Nutrition Answer Date Recorded Nutrition: EVOO Fat Source Unknown 04/02 Nutrition: Servings of Fruits/Vegetables per Day Not on file 04/02/2023 Dental Answer Date Recorded Dental: Regular Dentist Unknown 04/02/20 23 Comments Unknown Sex and Gender Information Value Date Recorded Sex Assigned at Not on file Legal Sex Female 11:39 AM 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 Gender Identity Not on file Sexual Orientation Not on file Plan of Treatment Health Maintenance Due Date Last Done Comments Cervical/Vaginal Cancer Screening 1990 HIV Screening 1990 Hepatitis C Screening 1990 DTaP,Tdap,and Td Vaccines (1 - Tdap) 2009 Hepatitis B Vaccines (1 of 3 - 19+ 3-dose series) 2009 Depression Screening (Annual PHQ-2) 05/19/2023 COVID-19 Vaccine (2 - 2023-2 5 season) 2024 04/16/2023 Influenza Vaccine (#1) 2024 04/16/2023 HPV Vaccines Aged Out No longer eligi ble based on patient's age to complete this topic IPV Vaccines Aged Out No longer eligi ble based on patient's age to complete this topic Pneumococcal vaccine (0-64 years) Aged Out No longer eligible based on patient's age to complete this topic Insurance [employer] EMPLOYEE
--- OUTSIDE RECORDS SUMMARY | 2024-04-20 08:18 | XMS_ITS | Referral Summary ---
Author Organization [facility] Address [address] [place] [address] Care Team Providers Care Water Quality Technician Name Role Phone Unavailable Primary Care Provider Unavailabl e Source Comments Patient records contain information from all sites at [facility]. For routine questions regarding patient records, call [phone] during business hours, M-F 8:00 AM - 5:00 PM Central Time. 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
--- OUTSIDE RECORDS SUMMARY | 2024-04-20 08:18 | XMS_ITS ---
Author Organization [facility] Address [address] [place] [address] Care Team Providers Care Gang Ripsaw Operator Name Role Phone Unavailable Unavailable Unavailable Surgery Details Not on file Complications Check Surgery Details section. Procedure Estimated Blood Loss Check Surgery Details section. Procedure Findings Check Surgery Details section. Procedure Specimens Taken Check Surgery Details section.
--- OUTSIDE RECORDS SUMMARY | 2024-04-20 08:18 | XMS_ITS | Clinical Summary ---
Author Organization [employer] [facility] Address [place], [place] [address] Care Team Providers Care Weight Loss Counselor Name Role Phone Pcp, No Primary Care [...] 68 10/02/2011 10:53 AM CDT Temperature 36.1 C (96.9 F) 10/02/2011 9:26 AM CDT Respiratory Rate 14 10/02/2011 10:53 AM CDT [...] Procedure Name Priority Date/Time Associated Diagnosis Comments LEAD HANDLER THIN PREP PAP SCREEN IMAGED Routine 10/01/2011 4:22 PM CDT Screening for malignant neoplasm of the cervix ANTI HIV 1/2 Routine 07/31/2010 2:46 PM CDT Screening examination for venereal disease from Last 3 Months or Most Recently Relevant to Health Maintenance Results * LEAD HANDLER THIN PREP PAP SCREEN IMAGED (10/01/2011 4:22 PM CDT) CYTOLOGY CYTOPATHOLOGY REPORT [facility] Status: Final Status [id number] CLINICAL INFORMATION Last Date of LMP :09/18/11 Last Pap Date :never Last Pap Result :First Pap/Unknown ABN [place]/Bx Past 5 YRS :None Hormone Usage :BCP/OCP/Patch/Rin g Menstrual Status :Irregular Periods [place]/Bx done today :No Additional Information :pATIENT GETS PERIOD EVERY THREE MONTHS, ON qUASENSE CONTROL pills HPV Request :HPV if ASCUS SPECIMEN SOURCE :Cervical/vaginal ThinPrep Vial, screening SPECIMEN ADEQUACY :Satisfactory for evaluation Endocervical component present. INTERPRETATION/RES ULT Negative for intraepithelial lesion or malignancy (NIL) Cytology 1st Screener :jaciel Signed by :jaciel This specimen was screened by the FDA approved ThinPrep Imaging System and manually reviewed. NOTE: The Pap test is a screening technique, not a diagnostic procedure. It is used primarily to screen for squamous cancers and precursor lesions. Published studies have shown that it is subject to both false negative and false positive results. The pap test should not be used as the sole means to diagnose or exclude pre-malignant and malignant lesions. COLLECTED:10/01/11 ACCESSIONED: 10/02/11 SIGNED: 10/07/11 [facility] PAP BETHESDA CODE NIL [facility] Tissue specimen (specimen) (Cervical/Vagina l) 10/01/2011 4:22 PM CDT 10/01/2011 4:19 PM CDT [facility] GUAJARDO PATHOLOGY/CYTOLOGY Performing Organization Address [facility] Co de Phone Number [facility] INTERNAL ZIP [address] [place] [address] * HIV (07/31/2010 2:46 PM CDT) ANTI HIV 1/2 Non-reacti ve [facility] Blood specimen (specimen) BLOOD SPECIMEN / Unknown 07/31/2010 2:46 PM CDT 07/31/2010 2:38 PM CDT Claudia Stanton MD SEND OUTS [facility] INTERNAL ZIP [address] [address] from Last 3 Months or Most Recently Relevant to Health Maintenance Insurance Payer Benefit Plan / Group Subscriber ID Effective Dates Phone Address Type BLUE CROSS [place] FED EMP [id number] 2010-Presen t [address] [address] [place] [address] COSMETIC PROCEDURES COSMETIC PROCEDURE HB ONLY 10/02/2011-Prese nt [address] [facility] [place] [address] Care Teams Weight Loss Counselor Relationship Specialty Start Date End Date Pcp, No . PCP - General 01/28/12
== END 2024-04-20 08:15 | disposition home or self-care (01) ==
PROVIDERS: PCP Family Medicine; Visit Provider Advanced Practice Midwife
DX: Z34.92 Encounter for supervision of normal pregnancy, unspecified, second trimester (principal); Z3A.20 20 weeks gestation of pregnancy
CPT/HCPCS: 76805; 76817

== ENCOUNTER 2024-06-15 08:32 | Outpatient (CLI) | payer OTHER, SELFPAY | END 2024-06-15 08:33 | disposition home or self-care (01) | LOC: NFLDREF 06-21 01:59 | PROVIDERS: PCP Family Medicine; Referring Provider Family Medicine; Visit Provider Advanced Practice Midwife | DX: Z34.83 Encounter for supervision of other normal pregnancy, third trimester (principal) | CPT/HCPCS: 86592 ==

== ENCOUNTER 2024-06-29 07:03 | Outpatient (CLI) | payer OTHER, SELFPAY ==
--- NOTE | 2024-06-29 07:15 | CRLHL7_ITS ---
For Patients: As a result of the Century Cures Act, medical imaging exams and procedure reports are released immediately into your electronic medical record. You may view this report before your referring provider. If you have questions, please contact your health care provider. Indication: Aphasia Technique: Noncontrast sagittal T1, axial FLAIR, T2, diffusion weighted sequences are provided. No comparisons. Findings: The ventricles, sulci and gyri are normal size, shape and contour for age. The midline structures are centrally located with no evidence of shift. There are no suspicious intra or extra-axial fluid collections. No region of restricted diffusion. Expected flow voids in the cavernous carotids and basilar artery. 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 Impression: 1. No radiographic evidence of acute intracranial abnormalities. Dictated by Bassam Ulloa MD @ 06/29/2024 9:58:31 AM (Electronically Signed)
== END 2024-06-29 07:04 | disposition home or self-care (01) ==
LOC: MRI 07:04
PROVIDERS: PCP Family Medicine; Visit Provider Family Medicine
DX: R47.01 Aphasia (principal); H53.9 Unspecified visual disturbance
CPT/HCPCS: 70551

== ENCOUNTER 2024-08-04 14:05 | Outpatient (CLI) | payer OTHER, SELFPAY | END 2024-08-04 14:06 | disposition home or self-care (01) | LOC: NFLDREF 08-06 09:54 | PROVIDERS: PCP Family Medicine; Referring Provider Family Medicine; Visit Provider Advanced Practice Midwife | DX: Z34.93 Encounter for supervision of normal pregnancy, unspecified, third trimester (principal); Z3A.35 35 weeks gestation of pregnancy | CPT/HCPCS: 87081; 87653 ==

== ENCOUNTER 2024-08-20 15:49 | Outpatient (CLI) | payer OTHER, SELFPAY ==
[2024-08-20 16:08] VITALS: BP 97/60; PULSE 88
[2024-08-20 16:09] VITALS: PULSE 83; O2SAT 98
--- NOTE | 2024-08-20 19:18 | PC.OBNST ---
NST Note NST Note Start: 08/20/24 15:51 Freq: ONCE Status: Active Protocol: Document 08/20/24 19:17 ABP (Rec: 08/20/24 19:18 ABP [id number]) NST Note 3 Para (# of births) 1 EDC 09/03/24 Gestational Age In Weeks & Days 38 Weeks & 0 Days Patient Presented with Complaint(s) of Other Other Complaints Sent from clinic for extended NST monitoring. Reactive Yes MARCO A Fowler RN Date 08/20/24 Reactive Yes MARCO A Wood RN Date 08/20/24 OB NST charge Yes Complete NST Note via Write Note Yes The provider's electronic signature indicates the NST is reactive/appropriate for gestational age. *Note to provider: If an addendum is required, open the patient's chart and click on the note under the Nurse/Allied Health tab.
== END 2024-08-20 17:15 | disposition home or self-care (01) ==
LOC: OB OUT 15:50 → OB 15:51
PROVIDERS: PCP Family Medicine; Visit Provider Advanced Practice Midwife
DX: O36.8330 Maternal care for abnormalities of the fetal heart rate or rhythm, third trimester, not applicable or unspecified (principal); Z3A.38 38 weeks gestation of pregnancy
CPT/HCPCS: 59025; G0463

== ENCOUNTER 2024-09-02 08:38 | Outpatient (CLI) | payer OTHER, SELFPAY ==
[2024-09-03 11:26] LABS: Strep B DNA Probe Negative (Negative)
[2024-09-03 14:28] LABS: Strep B Susceptibility Needed? No
== END 2024-09-02 08:39 | disposition home or self-care (01) ==
LOC: NFLDREF 08:38
PROVIDERS: PCP Family Medicine; Visit Provider Midwife
DX: Z34.83 Encounter for supervision of other normal pregnancy, third trimester (principal)
CPT/HCPCS: 87081; 87653

== ENCOUNTER 2024-09-10 09:00 | Outpatient (CLI) | payer OTHER, SELFPAY ==
--- NOTE | 2024-09-10 09:15 | CRLHL7_ITS ---
For Patients: As a result of the Cures Act, medical imaging exams and procedure reports are released immediately into your electronic medical record. You may view this report before your referring provider. If you have questions, please contact your health care provider. OB ULTRASOUND CELIA by LMP or US: 09/03/2024. GA: 41 w, 0 d. Single. Comparison: 04/20/2024. INDICATION: Post dates. TECHNIQUE: Real time grayscale imaging of the fetus was performed. Transabdominal. CERVIX: Not visualized. POSITIONING: Lucas breech, right foot. AMNIOTIC FLUID: 6.8 cm. SDP (N: greater than 2 x 1 cm) BIOPHYSICAL PROFILE: 2: Gross body movements 2: tone 2: Respiratory activity 2: Amniotic fluid SDP (N: greater than 2 x 1 cm) 8/8: Total score PLACENTA: Technique: Transabdominal. PLACENTA POSITION: Posterior. DOPPLER: heart rate: 129 bpm. IMPRESSION: Normal biophysical profile score 8/8. Chris Dennis M.D. Diagnostic Radiologist [email or web address]/[email or web address] acevedo/Dictated by: Chris Dennis MD @ 09/10/2024 10:48:00 AM (Electronically Signed)
== END 2024-09-10 09:01 | disposition home or self-care (01) ==
LOC: US 09:01
PROVIDERS: PCP Family Medicine; Visit Provider Midwife
DX: O48.0 Post-term pregnancy (principal); Z3A.41 41 weeks gestation of pregnancy
CPT/HCPCS: 76819

== ENCOUNTER 2024-09-10 11:15 | Inpatient (IN) | payer OTHER, SELFPAY ==
[2024-09-10] VITALS (33 sets, daily range): BP systolic 101–123; BP diastolic 57–86; PULSE 77–116; RESP 16; TEMP 36.6–36.9; O2SAT 92–100; BMI 32.0
[2024-09-10] MEDS: TERBUTALINE 1 MG/ML INJ 0.25 MG SUBCUT (11:58)
--- NOTE | 2024-09-10 12:57 | P.OBCN_ITS ---
OB - CN: HPI Date of Consult Time Seen by Provider: 12:03 Date Seen: 09/10/24 Patient: [facility] Patient Consult date: 09/10/24 Requesting Physician: Kristen Venegas CNM Primary Care Provider: Vinay Kunz MD Consult Narrative Reason for consult: malpresentation Narrative: The patient is a 34 year old G 3 P 1011 at 40 0/7 weeks gestation that was admitted to the Center triage on 09/10/24 for external cephalic version, and if successful, labor induction. The patient had been seen in the [facility] clinic today for a routine visit following BPP, and her fetus was found to be in a breech presentation. Amniotic fluid volume was noted to be normal, with an SDP of 6.8 cm. lie has been somewhat unstable recently. History of Present Dating criteria: based on 1st trimester US only (done on 01/20/2024) care: none Ultrasounds: normal 1st trimester US and normal mid trimester US History History 3 Elective abortions Para 1 Spontaneous abortions 1 Hx # Term Pregnancies 1 Ectopic pregnancies Hx # Pregnancies Multiple births Number of Living Children 1 Past Pregnancies Del. Date GA/Weeks Outcome Route wt Inf Gender Labor Lgth Anesthesia Location Provider Compli 04/16/21 39 live - full term vaginal delivery 7 lb 7 oz Male 15 hrs epidural [place], [place] Delivery Date: 04/16/21 Last Updated by: Ramya Dlegado ~ [facility], [facility] side up Labs Blood type: AB (+) positive Rubella: immune RPR/VDLR: nonreactive GBS status: negative HBsAG: negative OB Labs: Lab Assessment Start: 09/10/24 12:51 Freq: ONCE Status: Active Protocol: PC.OBGBS Activity Type Activity Date Activity User E-sign Co-sign Detail Recorded Client Recorded Date Recorded By Document 09/10/24 12:54 JRS No Response 09/10/24 12:54 JRS 09/10/24 12:54 Lab Assessment GBS Status negative Are Labs Available Yes Maternal Blood Type AB Maternal RH Factor Positive Evaluate Maternal Rubella Immune Status Immune Hepatitis B Surface Antigen Negative Maternal HIV Status Negative Maternal Syphillis (RPR) Status Negative PFSH PFSH Medical History Secondary female infertility ?N97.9 - Female infertility, unspecified (ICD-10) SI (sacroiliac) joint dysfunction ?M53.3 - Sacrococcygeal disorders, not elsewhere classified (ICD-10) Missed (~11/2022) ?O02.1 - Missed (ICD-10) Anxiety ?F41.9 - Anxiety disorder, unspecified (ICD-10) Depression ?F32.A - Depression, unspecified (ICD-10) Surgical History History of rhinoplasty ?Z98.890 - Other specified postprocedural states (ICD-10) History of hernia surgery ?Z98.890 - Other specified postprocedural states (ICD-10) ?Z87.19 - Personal history of other diseases of the digestive system (ICD-10) Family History Maternal Grandmother Thyroid disease Paternal Grandfather Lymphoma Mother Rheumatoid arthritis FHx: mental illness Drug dependence Sister FHx: mental illness Drug dependence 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 . Nonsmoker What is your current living situation?: I presently have a place to live Problems where you live: no known problems In the past 12 months, utilities in danger of being shut off: no In past 12 months, lack of transportation kept you from medical appts, meetings, work, or getting things needed for daily living: no In the past 12 mos, have been you worried that your food would run out before you had money to buy more?: never true In the past 12 mos, the food you bought just didn't last and you didn't have money to buy more?: never true Smoking Status: Never smoker How often does anyone, including family, friends and others, physically hurt you : never How often does anyone, including family, friends and others, insult or talk down to you: never How often does anyone, including family, friends and others, threaten you with harm: never How often does anyone, including family, friends and others, scream or curse at you: never Meds Home Medications and Allergies Home Medications ?Medication ?Instructions ?Recorded ?Confirmed ?Type doxylamine succinate 25 mg tablet 25 mg PO QHS PRN 02/10/24 09/10/24 History (Unisom (doxylamine)) QLA-tyry-HP-omega 3-fat com #1 27 1 cap PO .QD 06/16/24 09/10/24 History mg-1 mg-300 mg capsule omeprazole 40 mg capsule,delayed 40 mg PO QDAY 08/20/24 09/10/24 History release Allergies Allergy/AdvReac Type Severity Reaction Status Date / Time bee venom protein (honey bee) Allergy Mild Hives Verified 09/10/24 09:40 nuts Allergy Mild Uncoded 09/10/24 09:40 OB - H&P: Exam Physical Exam: Vital signs: Temp Pulse Resp BP Pulse Ox 98.1 F 80 16 108/66 99 09/10/24 11:48 09/10/24 11:47 09/10/24 11:48 09/10/24 11:47 09/10/24 12:54 Constitutional: Constitutional: no acute distress Detailed Abdominal Exam: Comments: Gravid, nontender. Fetus in a breech presentation by Cyril's, with head in the maternal left upper quadrant. breech does not feeling gauged in the pelvis, but is floating. A limited OB ultrasound was performed at the bedside using a transabdominal transducer. This confirmed bridgette breech presentation with head in the maternal left upper quadrant, back along the maternal right, grossly normal amniotic fluid volume. OB - CN: A/P Assessment and Plan (1) Breech presentation, antepartum: Problem details: at 35.5 weeks On , vertex on bedside US Status: Acute Plan The relative risks and benefits as well as efficacy of external cephalic version were carefully explained to the patient. She elected to proceed, and informed consent was obtained. Please see my separate procedure note for details of the procedure.
--- NOTE | 2024-09-10 13:26 | PM.PROC ---
Procedure Note Time Seen by Provider: 12:03 Date Seen: 09/10/24 Date of procedure: 09/10/24 Will [facility] bill your pro fee for this procedure?: Yes Pre-op diagnosis: 1. Intrauterine at 41 weeks gestation. 2. Breech presentation. Post-op diagnosis: other (1. Intrauterine at 41 weeks gestation. 2. Vertex presentation.) Procedure: External cephalic version. Procedure Description: PREOPERATIVE DIAGNOSIS: 1. Intrauterine at 41 weeks gestation. 2. Bridgette breech presentation. POSTOPERATIVE DIAGNOSIS: 1. Intrauterine at 41 weeks gestation. 2. Vertex presentation. PROCEDURE: 1. Nonstress test. 2. Limited OB ultrasound. 3. External cephalic version. SURGEON: Don. AUTOMOTIVE WINDOW TINTER: Rubi. ANESTHESIA: None. COMPLICATIONS: None. FINDINGS: Nonstress test: heart rate baseline 135 beats per minute, good variability, 15 x 15 accelerations present, no decelerations, category 1. Limited OB ultrasound: Single, living, intrauterine gestation in a bridgette breech presentation with the back along the maternal left, grossly normal amniotic fluid volume. PROCEDURE NOTE: A nonstress test was performed, which was reactive and reassuring. A limited OB ultrasound was performed at the bedside to determine position. Findings noted above. Informed consent was obtained for external cephalic version. Terbutaline 0.25 mg was administered to the patient subcutaneously. External cephalic version was attempted. I applied upward pressure to the breech, Kristen Venegas applied pressure to the vertex, and we attempted to gently coax the fetus in a forward roll in a clockwise direction. This attempt was successful. heart tones were noted to be normal after the version. The patient tolerated the procedure well. monitoring for 1 hour after the procedure was continued to be reassuring. Anesthesia: none Condition: stable Disposition: floor (With plans for induction of labor to begin today.)
--- NOTE | 2024-09-10 13:36 | P.LDBA_ITS ---
Documented by User: Vicky Ellington 09/10/24 14:15 Subjective History of Present Illness Time Seen by Provider: 13:40 Date Seen: 09/10/24 Narrative: Patient was seen in clinic earlier today and discovered fetus was breech. History of unstable lie (breech, vertex and transverse). Scheduled ECV in center, which was successful. Patient is being admitted to Labor and Delivery for IOL due to unstable lie. She is a 34 year old at 41 0/7 weeks gestation. Her full history and physical was dictated by Liz Varela CNM on 08/26/24. Please see this for details. Performed cervical check to determine plan for IOL. Discussed options for initiating Pitocin, and possibly AROM. Patient and are agreeable to this plan. Specific Issues/Plans Partner: Imer, son Howard; Baby girl! H&P: 08/26/24 by Liz Varela CNM IOL scheduled 09/12/24 0730. Please sign IOL consent. # SI pain. Had injections last and may want to consider again if it increases. seeing chiro, using belly band # Depression. Hx PP depression. -Beginning Buspar 07/29/2024 # History of anemia. Resolved with iron supplementation. Hgb 11.3 (07/29/24) # Unstable Lie Breech/Transverse at 35.5 and 41 weeks Resolved Scheduled ECV at 37 weeks, not done as baby was Vertex the week prior to appointment Breech found with BPP at 41 weeks, ECV successful prior to admission of IOL Imaging: Anatomy US 04/20/24: Normal findings with placenta 2.2 cm from os. Vaccinations: COVID: Pt getting at work [facility]: 03/15/2024 Flu: Pt getting at work [facility]: 03/15/2024 Tdap: 07/13/2024 PHQ/GEOVANNY: 07/13/2024 Hgb: 11.3 on 07/29/24 GBS: Negative 08/04/24 OB - Problem Based A/P Additional Plan (1) Post term , 41 weeks: Status: Acute (2) Unstable presentation antepartum: Status: Acute (3) Encounter for induction of labor: Status: Acute (4) Anxiety: Status: Acute (5) Depression: Status: Acute Plan ASSESSMENT:?? age 34 at 41 0/7 weeks gestation?? complicated by:??Breech and transverse lie, anemia, depression/anxiet y, SI pain. Labor type: Induced,due to unstable lie? Category 2 FHR pattern. Baseline 170, tachycardia, (previous baseline 120-130), moderate variability, accelerations present, decelerations noted. Contractions Q 2-3 min GBS negative? PLAN:?? 1. Routine intrapartum cares as ordered. Begin IOL with oxytocin 2. Monitoring per policy, continuous 3. Planning unmedicated . Desires water . Consent signed. Hep C negative. Candidate for analgesia of choice.??? 4. Patient encouraged to reposition and ambulate to promote physiologic labor and .?? 5. Anticipate ? OB Exam Physical Exam Vital signs: Temp Pulse Resp BP Pulse Ox 98.1 F 82 16 115/67 98 09/10/24 11:48 09/10/24 13:03 09/10/24 11:48 09/10/24 13:03 09/10/24 13:19 Detailed Labor and Delivery Exam Patient Gravid: Yes Dilation (cm): 2 Effacement (%): 50 Cervix position: posterior Consistency: soft Tachysystole: No Contraction intensity: Moderate Fetus (Single) Station: -3 Amniotic Membrane Status: intact Heart Rate Baseline: 170 Monitor Accelerations: Present Monitor Decelerations: Periodic Prison Variability: Moderate (6-25) Documented by User: Kristen Venegas CNM 09/10/24 16:59 Subjective History of Present Illness Narrative: Patient was seen in clinic earlier today and discovered fetus was breech. History of unstable lie (breech, vertex and transverse). Scheduled ECV in center, which was successful. Patient is being admitted to Labor and Delivery for IOL due to unstable lie. She is a 34 year old at 41 0/7 weeks gestation. Her full history and physical was dictated by Liz Varela CNM on 08/26/24. Please see this for details. Performed cervical check to determine plan for IOL. Discussed options for initiating Pitocin, and possibly AROM. Patient and are agreeable to this plan. did have a syncope episode after ECV and was evaluated in the ED but is doing well. He is at bedside. Her sister is also here for labor support, she stepped out of the room to grab lunch during discussion. Specific Issues/Plans Partner: Imer, son Howard; Baby girl! H&P: 08/26/24 by Liz Varela CNM IOL scheduled 09/12/24 0730. Please sign IOL consent. # SI pain. Had injections last and may want to consider again if it increases. seeing chiro, using belly band # Depression. Hx PP depression. -Beginning Buspar 07/29/2024 # History of anemia. Resolved with iron supplementation. Hgb 11.3 (07/29/24) # Unstable Lie Breech/Transverse at 35.5 and 41 weeks Resolved Scheduled ECV at 37 weeks, not done as baby was Vertex the week prior to appointment Breech found with BPP at 41 weeks, ECV successful prior to admission of IOL Imaging: Anatomy US 04/20/24: Normal findings with placenta 2.2 cm from os. Vaccinations: COVID: Pt getting at work [facility]: 03/15/2024 Flu: Pt getting at work [facility]: 03/15/2024 Tdap: 07/13/2024 PHQ/GEOVANNY: 07/13/2024 Hgb: 11.3 on 07/29/24 GBS: Negative 08/04/24 OB - Problem Based A/P Additional Plan (1) Post term , 41 weeks: Status: Acute (2) Unstable presentation antepartum: Status: Acute (3) Encounter for induction of labor: Status: Acute (4) Anxiety: Status: Acute (5) Depression: Status: Acute Plan ASSESSMENT:?? age 34 at 41 0/7 weeks gestation?? complicated by:??Breech and transverse lie, anemia, depression/anxiety, SI pain. Labor type: Induced,due to unstable lie? Category 2 FHR pattern, previously Category I on admission for ECV and after Contractions Q 2-3 min GBS negative? PLAN:?? 1. Routine intrapartum cares as ordered. Begin IOL with oxytocin. Discussed plan for AROM due to unstable lie, would consider as soon as safe to do so. 2. Monitoring per policy, continuous 3. Planning unmedicated . Desires water . Consent signed. Hep C negative. Candidate for analgesia of choice.??? 4. Patient encouraged to reposition and ambulate to promote physiologic labor and .?? 5. MD consulted for ECV found in clinic, Dr. Ochoa aware of plan and agrees. 6. Anticipate ? I,?Kristen Venegas APRN, GUSTAVO, was present for visit and have reviewed and agree with documentation by the Certified Nurse Midwifery Student. Delivery/Labor/Induction Plan Plan: induction Induction method: per pitocin protocol OB Exam Physical Exam Narrative: Baseline 170, tachycardia, (previous baseline 120-130), moderate variability, accelerations present, decelerations noted.
[2024-09-10] MEDS: LACTATED RINGERS 1000 ML 1,000 ML 575 ML IV ×2 (14:09→17:56)
[2024-09-10] MEDS: OXYTOCIN 30 unit/500 ML in NS 30 UNIT/500 ML BAG IVPB (14:57)
--- NOTE | 2024-09-10 16:59 | P.OBPN_ITS ---
Documented by User: Vicky Ellington 09/10/24 17:24 Subjective Time Seen by Provider: 16:20 Date Seen: 09/10/24 Narrative: Patient is resting comfortably in bed with at bedside along with sister, niece and mother visiting. Pitocin has been running, and patient reports feeling slightly more pelvic pressure and increasing intensity of the contractions. Discussed plan for goal of contraction pattern to become more regular, closer together, then consider AROM if appropriate. Encouraged position changes and ambulation to promote ongoing labor and optimal positioning. Patient agreeable to plan, questions answered. Objective Vital Signs: Last Vital Signs Temp 98.4 F 09/10/24 13:42 Pulse 100 09/10/24 15:02 Resp 16 09/10/24 11:48 BP 101/66 09/10/24 15:02 Pulse Ox 98 09/10/24 13:19 Contractions Monitor mode: External Contraction Frequency: 2-5 min Contraction pattern: Regular Contraction intensity: Moderate Pitocin Rate (mU/min): 6 Assessment Assessment: early labor Status: Category l Heart Rate Baseline: 150 Intermediate Variability: Moderate (6-25) Monitor Accelerations: Present Monitor Decelerations: None Plan Plan: ASSESSMENT:?? age 34 at 41 0/7 weeks gestation?? complicated by:??Breech and transverse lie, anemia, depression/anxiety, SI pain. Labor type: Induced,due to unstable lie? Category 1 FHR pattern. Contractions Q 2-5 min GBS negative? PLAN:?? 1. Routine intrapartum cares as ordered. Continue IOL with oxytocin 2. Monitoring per policy, continuous 3. Planning unmedicated . Desires water . Consent signed. Hep C negative. Candidate for analgesia of choice.??? 4. Patient encouraged to reposition and ambulate to promote physiologic labor and .?? 5. Anticipate ? Documented by User: Kristen Venegas CNM 09/10/24 17:29 Plan Plan: ASSESSMENT:?? 34 yo 34 at 41 0/7 weeks gestation?? complicated by:??Breech and transverse lie, anemia, depression/anxiety, SI pain. Labor type: Induced,due to unstable lie? Category 1 FHR pattern. Contractions Q 2-5 min GBS negative? PLAN:?? 1. Routine intrapartum cares as ordered. Continue IOL with oxytocin 2. Monitoring per policy, continuous 3. Planning unmedicated . Desires water . Consent signed. Hep C negative. Candidate for analgesia of choice.??? 4. Patient encouraged to reposition and ambulate to promote physiologic labor and .?? 5. Anticipate ? I,?Kristen Venegas APRN, CNM, was present for visit and have reviewed and agree with documentation by the Certified Nurse Midwifery Student.
--- NOTE | 2024-09-10 18:53 | PM.OBPNL ---
Documented by User: Vicky Ellington 09/10/24 19:10 Subjective Time Seen by Provider: 18:45 Date Seen: 09/10/24 Narrative: In to see patient, check progress and review plan. Patient resting on bed, breathing through contractions with some inward focus, relatively comfortable. States she feels increased discomfort with contractions, yet tolerable and not in need of pain relief. States she has done a limited amount of ambulation. Discussed checking cervix, and AROM if indicated. Reviewed risks and benefits of procedure. Patient agreeable to plan. SVE 80 and ballottable. AROM not appropriate at this time. Encouraged working through circuit, lunges and continued ambulation/positioning. remains at bedside and supportive, feeling stable after prior fall. Objective Vital Signs: Last Vital Signs Temp 98.4 F 09/10/24 13:42 Pulse 89 09/10/24 18:07 Resp 16 09/10/24 11:48 BP 102/57 L 09/10/24 18:07 Pulse Ox 98 09/10/24 13:19 Pelvic Exam Dilation (cm): 3 Effacement (%): 80 Station: Ballottable Contractions Monitor mode: External Contraction Frequency: 2-4 min Contraction pattern: Regular Contraction intensity: Moderate Pitocin Rate (mU/min): 8 Assessment Assessment: early labor Station: -3 Status: Category l Heart Rate Baseline: 140 Long-Term Variability: Moderate (6-25) Monitor Accelerations: Present Monitor Decelerations: None Plan Plan: ASSESSMENT:?? Age 34 at 41 0/7 weeks gestation?? complicated by:??Breech and transverse lie, anemia, depression/anxiety, SI pain. Labor type: Induced,due to unstable lie? Category 1 FHR pattern. Contractions Q 2-4 min GBS negative? PLAN:?? 1. Routine intrapartum cares as ordered. Continue IOL with oxytocin. AROM not indicated at this time, fetus station remains ballottable. 2. Monitoring per policy, continuous. 3. Planning unmedicated . Desires water . Consent signed. Hep C negative. Candidate for analgesia of choice.??? 4. Patient encouraged to reposition and ambulate to promote physiologic labor and .?? 5. Anticipate ? Documented by User: Kristen Venegas CNM 09/10/24 19:39 Plan Plan: ASSESSMENT:?? Age 34 at 41 0/7 weeks gestation?? complicated by:??Breech and transverse lie, anemia, depression/anxiety, SI pain. Labor type: Induced,due to unstable lie? Category 1 FHR pattern. Contractions Q 2-4 min GBS negative? PLAN:?? 1. Routine intrapartum cares as ordered. Continue IOL with oxytocin. AROM not indicated at this time, fetus station remains ballottable. 2. Monitoring per policy, continuous. 3. Planning unmedicated . Desires water . Consent signed. Hep C negative. Candidate for analgesia of choice.??? 4. Patient encouraged to reposition and ambulate to promote physiologic labor and .?? 5. Anticipate ? I,?Kristen Venegas APRN, GUSTAVO, was present for visit and have reviewed and agree with documentation by the Certified Nurse Midwifery Student.
[2024-09-10] MEDS: LIDOCAINE 1 % PF 30 ML INJECTION (23:50)
[2024-09-11] VITALS (13 sets, daily range): BP systolic 92–115; BP diastolic 52–74; PULSE 71–93; RESP 12–18; TEMP 36.6–37.2; O2SAT 97–99
--- NOTE | 2024-09-11 00:34 | W.PM.VAGDE_ITS ---
Documented by User: Vicky Ellington 09/11/24 01:00 OB Procedure Vag Delivery Mother Details Mother Details: The patient is a 34 year-old, 3, Para now 2, admitted on 09/10/24 at 41 0/7 weeks gestation. She was seen in the clinic this morning for scheduled BPP where the fetus was found to be in breech position. History of unstable lie throughout . Decided to admit to L&D for a ECV and plan for either an IOL if successful or a CS if unsuccessful. Dr Ochoa from the OB team performed a successful ECV and IOL was started with oxytocin. Eventual AROM augmentation helped progress to active labor, followed by precipitous delivery in birthing tub. : 3 Para: 2 Weeks Gestation: 41.0 Admission Date: 09/10/24 Additional Details Amniotic Membrane Status: AROM Amniotic Membrane Rupture Date: 09/10/24 Amniotic Membrane Rupture Time: 21:41 Amniotic Membrane Fluid Description: Clear Analgesia/Anesthesia Type: Local Waterbirth: Yes Pitcoin: Yes Intrapartal Events: Labor Augmentation (AROM), Labor Induction (Oxytocin) and Precipitous Labor <3 Hrs Delivery augmentation: rupture of membranes Labor Onset: 22:45 Complete: 23:18 Pushin:18 Heart: heart tones during second stage were difficult to trace with maternal mobility. Delivery Details Delivery Date: 09/10/24 Delivery Time: 23:35 Route of delivery: Infant Gender: Female Infant Viability: Alive; Heart Rate Present Position at Delivery: OA Delivery Details: Patient was admitted for ECV and IOL due to unstable lie. Progressed in labor with augmentation with Pitocin. AROM performed at 2141 with clear fluid. Patient was transferred from [facility] room to neighboring room as she was asking for an epidural. As she began spontaneously pushing while sitting in the bed, she decided to try for a tub . She was then transferred back into the [facility] room where she was able to transfer into the birthing tub and deliver infant. Patient was assumed complete with spontaneous pushing at 2318. of a viable female at 2335 in semi-recumbent squatting position in the tub. Vertex delivered OA. No nuchal cord or shoulder dystocia present. Body delivered easily and without incident. passed to mothers abdomen with a vigorous cry. Cord was clamped and cut at > 5 minutes. APGARS were 8 at one minute and 8 at five minutes respectively. Intact placenta with a 3 vessel cord delivered spont aneously at 2347. Fundus firm. 1st degree perineal/vaginal laceration identified and repaired in typical fashion. QBL 450 cc with EBL 200 in tub. Mother and baby stable; mother plans to breastfeed. weight pending.? 1 Minute Interval Total Score: 8 5 Minute Interval Total Score: 8 Additional Details Shoulder Dystocia: No Placenta Delivery Time: 23:47 Placental Delivery Description: Spontaneous Delivery repair: Vicryl Procedure Done: Global Blood Loss: 650 Laceration: Perineal - 1st Degree Blood Loss Measurement Type: QBL (QBL;450, EBL;200 in tub) Bakri Used: No Sponge/Need Count Correct: Yes Cord Vessel Description: 3 Vessels Event Summary Status: Mother and infant were stable after delivery. Disposition: floor Documented by User: Kristen Venegas CNM 09/11/24 01:07 OB Procedure Vag Delivery Additional Details Intrapartal Events: Labor Induction (Oxytocin for unstable lie) Induction Method: per pitocin protocol and AROM Heart: heart tones during second stage were difficult to trace with maternal mobility but reassuring via attempted continuous monitoring. Delivery Details Delivery Details: Patient was admitted for ECV and IOL due to unstable lie. Progressed in labor with augmentation with Pitocin. AROM performed at 2141 with clear fluid. Patient was transferred from [facility] room to neighboring room as she was asking for an epidural, cervix was unchanged at 4 cm. As she began spontaneously pushing while sitting in the bed, she decided to try for a tub . She was then transferred back into the [facility] room where she was able to transfer into the birthing tub and deliver infant. Patient was assumed complete with spontaneous pushing at 2318. of a viable female at 2335 in semi-recumbent squatting position in the tub. Vertex delivered OA. No nuchal cord or shoulder dystocia present. Body delivered easily and without incident. Infant passed to mothers abdomen with a vigorous cry. Cord was clamped and cut at > 5 minutes. APGARS were 8 at one minute and 8 at five minutes respectively. Intact placenta with a 3 vessel cord delivered spontaneously at 2347. Fundus firm. 1st degree perineal/vaginal laceration identified and repaired in typical fashion. QBL 450 cc with EBL 200 in tub. Mother and baby stable; mother plans to breastfeed. Infant weight pending.? Event Summary Status: Mother and infant were stable after delivery. I,?Kristen Venegas APRN, GUSTAVO, was present for visit and have reviewed and agree with documentation by the Certified Nurse Midwifery Student.
[2024-09-11] MEDS: IBUPROFEN 600 MG TABLET PO ×3 (00:55→20:05)
[2024-09-11] MEDS: ACETAMINOPHEN 500 MG TABLET 1000 MG PO ×2 (02:31→23:29)
[2024-09-11] MEDS: DOCUSATE SODIUM 100 MG CAPSULE PO (08:30)
[2024-09-11] MEDS: LANOLIN CREAM 1 APPLIC TOPICAL (08:30)
[2024-09-11 15:31] LABS: Rapid Plasma Reagin (RPR) Non Reactive (Non Reactive)
[2024-09-12 06:38] LABS: Hemoglobin* 9.3 gm/dL (12.0-16.0)
--- NOTE | 2024-09-12 07:13 | P.DS_ITS ---
DS: Providers Provider Date Seen: 09/12/24 Date of admission: 09/10/24 11:15 Primary care physician: Vinay Kuzn MD Admitting Clinician: Kristen Venegas CNM Attending Physician on discharge: Kristen Venegas CNM DS: Diagnosis Discharge Diagnosis (1) care and examination immediately after delivery: Status: Acute (2) Lactating mother: Status: Acute (3) Depression: Status: Acute (4) Anxiety: Status: Acute (5) Anemia due to acute blood loss: Status: Acute Exam Narrative: Exam Narrative: GENERAL APPEARANCE:? normal affect, alert, no distress MOOD:? appropriate CHEST:? clear to auscultation HEART:? regular rate and rhythm ABDOMEN:? soft, non-tender the uterine fundus is At Umbilicus, Midline and is appropriate for the stage of recovery. PERINEUM:? mild edema of the perineum, there is a Perineal Laceration,?1st degree, that is healing well. EXTREMITIES:? normal and no edema Const: Vital Signs, click to edit/add: Vital Signs - 24 hr 09/11/24 08:36 09/11/24 13:49 09/11/24 18:00 Temperature 98.9 F 98.0 F 98 F Pulse Rate [Blood Pressure Cuff] 87 81 80 Respiratory Rate 16 16 16 Blood Pressure [Le ft Arm] 92/58 L 108/69 103/63 Pulse Oximetry 97 98 Oxygen Delivery Me thod Room Air Room Air Room Air 09/11/24 20:29 09/11/24 23:52 Temperature 99.0 F 97.9 F Pulse Rate [Blood Pressure Cuff] 84 75 Respiratory Rate 12 16 Blood Pressure [Le ft Arm] 107/74 108/69 Pulse Oximetry 99 97 Oxygen Delivery Me thod Room Air Room Air Documenting provider has reviewed patient's vital signs: yes OB - DS: Summary Hospital Course Hospital Course: Maryjo Nieto is a 34 y.o. G 3 P now 2011 who was admitted to L & D for IOL for unstable lie following successful ECV. ?She had a NVD that was uncomplicated. The patient feels well. ?The pain is well controlled with current medications. ?She has no new complaints. ?She is breast feeding and reports things are going well. the patient has done well.? Vitals have been stable.? She has remained afebrile.? Has a good appetite, is tolerating a general diet. ?She is voiding without difficulty.? She is passing gas and has not had a bowel movement.? She is ambulating and denies any dizziness.? Has small amount of rubra lochia. Planning Mirena IUD for prevention. Problems: Anemia Discharge home with baby.? Follow up in 2 weeks and 6 weeks.? , may see if needed? Hgb 9.3. Iron supplement ordered orally every other day? For pain control of perineum, breast and pelvic pain, take 600 mg Ibuprofen every 6 hours as needed by mouth or 1000 mg acetaminophen (Tylenol) every 6 hours by mouth as needed. You can alternate these so you are taking something every 3 hours as needed. A heating pad can also be used for your abdomen or breasts. You may also take docusate sodium up to twice daily to soften your stools and help to prevent constipation. You may wean off of it when your stools return to normal.? Peripartum Data delivery method: Vaginal Laceration description: Perineal - 1st Degree complications: none Timber Gender: Female Discharge Plan: Home Status at Discharge Functional status at discharge: independent ambulation Overall status at discharge: patient is progressing back to baseline Time Spent with Patient Time attestation: Total time spent providing and/or coordinating discharge services: Time spent: Less than 30 minutes Discharge Plan Discharge Disposition: Home, Self-Care Date of Admission: 09/10/24 11:15 Attending Provider on Discharge: Kristen Venegas Primary Care Provider: Vinay Kunz Condition: Stable Anticipated Discharge Date/Time: 09/12/24 12:00 Discharge Medications: New acetaminophen 500 mg Tablet 1,000 mg PO Q6H PRNQty: 0 0RF docusate sodium 100 mg Capsule 100 mg PO DAILY Qty: 60 0RF ferrous sulfate 325 mg (65 mg iron) Tablet 325 mg PO Q OTHER DAY Qty: 60 0RF ibuprofen 600 mg Tablet 600 mg PO Q6H PRNQty: 60 0RF Continued [id number] 3-fat com #1 27-1-300 mg capsule 1 cap PO .QD buspirone 5 mg tablet 5 mg PO BID Qty: 180 3RF Unisom (doxylamine) 25 mg tablet 25 mg PO QHS PRN omeprazole 40 mg capsule,delayed release(DR/EC) 40 mg PO QDAY Discharge Orders: Discharge Order (Routine); Ordered 09/12/24 Ordered By: Kristen Venegas Patient Education: OB Over the Counter Medication Information, OB Vaginal/Breast Feeding Additional Instructions: Discharge instructions were reviewed with the patient including signs and symptoms of infection and home going medications Nothing vaginally for 6 weeks: no tampons or intercourse Do not drive while taking narcotic pain medication(s) Off Work or School for 6 weeks 2-week visit: discuss feeding concerns, review control options and screen for anxiety/depression. 6-week visit for an annual exam. consultation services are available to all mothers and babies for the first year after delivery.? To make an appointment, please call [phone]. Activity Level: Activity as Tolerated Discharge Diet: Regular Follow Up Appointments: [facility] [Provider Group] Forms: [facility] [employer] Info Instructions
[2024-09-12 09:39] VITALS: BP 97/67; PULSE 70; RESP 16; TEMP 36.7; O2SAT 100
[2024-09-12] MEDS: IBUPROFEN 600 MG TABLET PO (09:45)
[2024-09-12] MEDS: FERROUS SULFATE 325 MG TABLET PO (09:45)
[2024-09-12] MEDS: DOCUSATE SODIUM 100 MG CAPSULE PO (09:45)
== END 2024-09-12 12:45 | disposition home or self-care (01) | DRG 806 ==
PROVIDERS: Admitting Provider Advanced Practice Midwife; PCP Family Medicine; Visit Provider Advanced Practice Midwife
DX: O32.1XX0 Maternal care for breech presentation, not applicable or unspecified (principal); D62 Acute posthemorrhagic anemia; Z37.0 Single live birth; O99.02 Anemia complicating childbirth; O48.0 Post-term pregnancy; O62.3 Precipitate labor; O70.0 First degree perineal laceration during delivery; O99.344 Other mental disorders complicating childbirth; F41.9 Anxiety disorder, unspecified; F32.A Depression, unspecified; Z3A.41 41 weeks gestation of pregnancy
CPT/HCPCS: 36415; 59412; 76815; 85018; 86592; A9270; J2003; J3105; J7120

== ENCOUNTER 2024-11-26 07:39 | Outpatient (CLI) | payer OTHER, SELFPAY ==
--- NOTE | 2024-11-26 07:45 | CRLHL7_ITS ---
For Patients: As a result of the Cures Act, medical imaging exams and procedure reports are released immediately into your electronic medical record. You may view this report before your referring provider. If you have questions, please contact your health care provider. DIGITAL DIAGNOSTIC LEFT MAMMOGRAM WITH TOMOSYNTHESIS AND COMPUTER-AIDED DETECTION LEFT BREAST ULTRASOUND CLINICAL HISTORY: LEFT breast lump. COMPARISON: None. TECHNIQUE: Digital LEFT mammogram in two projections with computer-aided detection. Tomosynthesis was used in this interpretation. Real-time ultrasound imaging of LEFT breast with imaging documentation. BREAST COMPOSITION: The breasts are extremely dense, which lowers the sensitivity of mammography. FINDINGS: 3D CC/MLO LEFT breast mammogram images submitted. No suspicious masses or architectural distortion. No suspicious calcifications. No adenopathy. Targeted LEFT breast ultrasound performed at 8 o`clock 7 cm from the nipple. In this location, there is a simple circumscribed anechoic cyst with increased through-transmission measuring 1.3 x 1.1 x 1.2 cm. IMPRESSION: Benign cyst LEFT breast 8 o`clock 7 cm from the nipple measuring 1.3 cm. No suspicious findings. RECOMMENDATIONS: Clinical follow-up. Age-appropriate screening mammography. A lay language report of this examination will be provided to the patient. BI-RADS Category 2: Benign Dictated by Chris Dennis MD @ 11/26/2024 9:58:19 AM /Dictated by: Chris Dennis MD @ 11/26/2024 9:58:00 AM (Electronically Signed)
--- NOTE | 2024-11-26 08:15 | CRLHL7_ITS ---
For Patients: As a result of the Cures Act, medical imaging exams and procedure reports are released immediately into your electronic medical record. You may view this report before your referring provider. If you have questions, please contact your health care provider. SEE DIGITAL DIAGNOSTIC LEFT MAMMOGRAM PERFORMED SAME DAY CRL:curtis acevedo/Dictated by: Chris Dennis MD @ 11/26/2024 8:41:00 AM (Electronically Signed)
== END 2024-11-26 07:40 | disposition home or self-care (01) ==
LOC: MAMMO 07:40
PROVIDERS: PCP Family Medicine; Visit Provider Family Medicine
DX: N63.20 Unspecified lump in the left breast, unspecified quadrant (principal); N60.02 Solitary cyst of left breast
CPT/HCPCS: 76642; 77065; G0279